=== PATIENT | male | born 1985 | race Caucasian/White ===

== ENCOUNTER 2016-08-29 05:13 | Emergency (ER) | payer BC, OTHER ==
[~2016-08-29] VITALS: Ht 180.3 cm; Wt 101.5 kg
[~2016-08-29 05:13] MED LIST: BACT2OIN TOP; CEPH500C3 PO; CYCL-36 PO; LORT7.5T3 PO; Z.0.NO CURRENT MEDS
[2016-08-29 05:19] VITALS: BP 121/70; PULSE 69; RESP 16; TEMP 97.6; O2SAT 99
--- NOTE | 2016-08-29 05:49 | PD ---
HPI Chief Complaint: Injury Time Seen by Provider: 05:37 Travel History International Travel<30 days: No Contact w/Intl Traveler<30days: No Traveled to known affect area: No History of Present Illness HPI The patient is a 31-year-old male that complains of pain in the ankle joint and Lisfranc's joint on the left for 2 days. He denies any trauma. He does not have a history of arthritis or gout. He denies any fever. He denies any other joint pain. [facility] Social History Alcohol Use: Yes (the patient reports that he occasionally drinks alcohol) Tobacco Use: No Substance Use: No Allergies-Medications (Allergen,Severity, Reaction): Coded Allergies: No Known Allergies (Verified , 08/29/16) Reported Meds & Prescriptions Reported Meds & Active Scripts Active Ibuprofen 800 Mg Tab 800 Mg PO TID Reported Ibuprofen 800 Mg Tab 800 Mg PO Q6HR PRN Review of Systems Except as stated in HPI: all other systems reviewed are Neg Physical Exam Narrative GENERAL: The patient is alert, oriented 3 in slight apparent distress with his foot and ankle pain on the left. His vital signs are normal. SKIN: Focused skin assessment warm/dry. HEAD: Atraumatic. Normocephalic. EYES: Pupils equal and round. No scleral icterus. No injection or drainage. ENT: No nasal bleeding or discharge. Mucous membranes pink and moist. NECK: Trachea midline. No JVD. CARDIOVASCULAR: Regular rate and rhythm. No murmur appreciated. RESPIRATORY: No accessory muscle use. Clear to auscultation. Breath sounds equal bilaterally. GASTROINTESTINAL: Abdomen soft, non-tender, nondistended. Hepatic and splenic margins not palpable. MUSCULOSKELETAL: No obvious deformities. No clubbing. No cyanosis. No edema. There is tenderness but no erythema over Lisfranc's joint and the ankle joint. The patient can feel swelling in these joints and I can barely see swelling in those joints as compared to the right foot and ankle. NEUROLOGICAL: Awake and alert. No obvious cranial nerve deficits. Motor grossly within normal limits. Normal speech. PSYCHIATRIC: Appropriate mood and affect; insight and judgment normal. Data Data Last Documented VS Vital Signs Date Time Temp Pulse Resp B/P Pulse Ox O2 Delivery O2 Flow Rate FiO2 08/29/16 05:50 20 08/29/16 05:19 97.6 69 121/70 99 Room Air Orders Ankle, Complete ([id number]) (08/29/16 05:37) Foot, Complete ([id number]) (08/29/16 05:37) Ketorolac Inj (Toradol Inj) (08/29/16 06:00) Crutches (08/29/16 05:49) [facility] Medical Decision Making Medical Screen Exam Complete: Yes Emergency Medical Condition: Yes Medical Record Reviewed: Yes Interpretation(s) X-rays of the left ankle are unremarkable and x-rays of the left foot are unremarkable. Differential Diagnosis Arthrosis, arthritis, occult fracture Narrative Course The patient has tenderness over Lisfranc's joint and the ankle joint. He appears to have an arthrosis. Plan: The patient is to elevate, rest, nonweightbearing the left foot and ankle and follow-up with podiatry. Diagnosis Primary Impression: Arthrosis of left foot Additional Impression: Arthrosis of left ankle Additional Instructions: Take the Motrin 3 times daily to develop high anti-inflammatory levels. Rest, elevate and nonweightbearing the foot until totally pain-free. Elevation means above your heart when you can. Med/Other Pt SpecificInfo: Prescription(s) given Scripts Ibuprofen 800 Mg Adq653 Mg PO TID #44 TAB Ref 0 Prov:Cedrick Quintero MD 08/29/16 Disposition: 01 DISCHARGE HOME Condition: Stable Cedrick Quintero MD August 29, 2016 05:49
[2016-08-29] MEDS ORDERED: IBUP800T23 PO ×2 (05:54→05:58)
[2016-08-29] MEDS ORDERED: KETOROLAC TROMETHAMINE 60 MG/2 ML (IM) VIAL IM ONE (06:00)
--- NOTE | 2016-08-29 06:38 | RADHPO ---
EXAM DATE/TIME: 08/29/2016 06:13 [facility] COMPARISON: No previous studies available for comparison. INDICATIONS : Left ankle pain for 2 days. No known trauma. MEDICAL HISTORY : None. SURGICAL HISTORY : None. ENCOUNTER: Initial ACUITY: 2 days PAIN SCORE: 6/10 LOCATION: Left lateral FINDINGS: Three view exam was performed of the left ankle. The bony structures are in normal alignment. No ev idence of fracture, dislocation, or soft tissue swelling. The ankle mortise is intact. No radiopaqu e foreign bodies are seen. Bony mineralization is normal. CONCLUSION: Unremarkable examination of the left ankle. Clarence Fagan MD on August 29, 2016 at 6:36 Board Certified Radiologist. This report was verified electronically.
--- NOTE | 2016-08-29 06:38 | RADHPO ---
EXAM DATE/TIME: 08/29/2016 06:15 [facility] COMPARISON: No previous studies available for comparison. INDICATIONS : Left foot pain for 2 days. No known trauma. MEDICAL HISTORY : None. SURGICAL HISTORY : None. ENCOUNTER: Initial ACUITY: 2 days PAIN SCORE: 8/10 LOCATION: Left lateral FINDINGS: Three view examination of the left foot demonstrates no soft tissue swelling, dislocation, or fractur e. The tarsal bones appear intact. The interphalangeal and metatarsophalangeal joints are intact. The calcaneus is intact. Bony mineralization is normal. CONCLUSION: Unremarkable examination of the left foot. Clarence Fagan MD on August 29, 2016 at 6:36 Board Certified Radiologist. This report was verified electronically.
[2016-08-29 06:57] VITALS: BP 143/77
== END 2016-08-29 07:06 | disposition home or self-care (01) ==
LOC: PHED 05:13
DX: M19.072 Primary osteoarthritis, left ankle and foot (principal); Z79.82 Long term (current) use of aspirin
CPT/HCPCS: 73610; 73630; 96372; 99283; E0113; J1885